=== PATIENT | female | born 2005 | race Hispanic/Latino ===

== ENCOUNTER 2023-11-30 11:53 | Inpatient (IN) | payer OTHER ==
[2023-11-30 12:11] VITALS: BMI 26.9
[2023-11-30 12:38] LABS: Fetal Membranes Rupture RUPTURE DETECTED (No Rupture)
[2023-11-30] MEDS ORDERED: hydrALAZINE 20 MG/ML VIAL SLOW IVP PRN ×2 (12:55→13:11)
[2023-11-30] MEDS ORDERED: Ondansetron PF 4 MG/2 ML Vial IVP PRN ×2 (13:11→16:40)
[2023-11-30] MEDS ORDERED: Promethazine HCl 25 MG/ML VIAL IM PRN ×2 (13:11→16:40)
[2023-11-30] MEDS ORDERED: Lidocaine 1% (PF) 30 ML VIAL SC PRN (13:11)
[2023-11-30] MEDS ORDERED: Methylergonovine 0.2 MG/ML VIAL IM PRN (13:12)
[2023-11-30] MEDS ORDERED: Carboprost 250 MCG/ML AMP IM PRN (13:12)
[2023-11-30] MEDS ORDERED: Acetaminophen 500 MG TAB PO PRN (13:12)
[2023-11-30] MEDS ORDERED: Ibuprofen 800 MG TAB PO PRN (13:12)
[2023-11-30] MEDS ORDERED: Tranexamic Acid 1,000 MG/10 ML VIAL IVP PRN (13:12)
[2023-11-30] MEDS ORDERED: fentaNYL 50 mcg/mL 1 mL Vial SLOW IVP PRN (13:12)
[2023-11-30] MEDS ORDERED: Diphenoxylate HCl/Atropine Tablet PO PRN (13:12)
[2023-11-30] MEDS ORDERED: Misoprostol 200 MCG TAB PR PRN (13:12)
[2023-11-30] MEDS ORDERED: Lactated Ringer's 1,000 ML IV SCH (13:15)
[2023-11-30] MEDS ORDERED: Oxytocin 30 units/NS 500 ML 500 ML IV SCH ×2 (13:15)
[2023-11-30] MEDS ORDERED: Penicillin G Potassium 5 MILL.UNITS in Sodium Chloride 0.9% 100 ML IVPB SCH (13:15)
[2023-11-30 13:48] LABS: Hematocrit 29.7 % (34.9-44.5); Hemoglobin 9.6 g/dL (12.0-15.5); Mean Corpuscular HGB CONC 32.3 g/dL (32.0-36.0); Mean Corpuscular Hemoglobin 20.3 pg (27.0-33.0); Mean Corpuscular Volume 62.9 fL (81.6-98.3); Mean Platelet Volume 10.4 fL (7.4-10.4); Platelet Count 254 10x3/uL (150-450); RBC Distribution Width 15.8 % (11.5-14.5); Red Blood Cell (RBC) Count 4.72 10x6/uL (3.90-5.03); White Blood Cell (WBC) Count 11.1 10x3/uL (3.5-10.5)
[2023-11-30 14:14] LABS: Syphilis Antibody Nonreactive (Nonreactive); Syphilis Antibody Index 0.06 S/CO (<1.00 Non-Reactive)
[2023-11-30 14:16] LABS: HBsAg Index 0.18 S/CO (0-0.99); Hep B Surf Ag - L&D Non-Reactive S/CO (NonReactive)
[2023-11-30] MEDS: fentaNYL/Ropivacaine Epidural 100 ML ONE (16:31)
[2023-11-30] MEDS ORDERED: Naloxone HCl 0.4 mg/ml Vial IVP PRN ×2 (16:40)
[2023-11-30] MEDS ORDERED: ePHEDrine Sulfate 50 MG/10 ML VIAL SLOW IVP PRN (16:40)
[2023-11-30] MEDS ORDERED: Moisturizing Cream (Eucerin) 113 GM JAR TOP PRN (16:40)
[2023-11-30] MEDS ORDERED: diphenhydrAMINE 50 MG/ML VIAL IVP PRN (16:40)
[2023-11-30] MEDS ORDERED: Lactated Ringer's 500 ML IV PRN (16:40)
[2023-11-30] MEDS ORDERED: fentaNYL 2 mcg/Ropivacaine 0.2% Epidural 100 ML CADD EPIDURAL SCH (16:45)
[2023-11-30] MEDS ORDERED: Communication Order-Pharmacy FS SCH (16:45)
[2023-11-30] MEDS ORDERED: Penicillin G 2.5 MILL.units 2.5 MILL.UNITS in Premix 1 BAG IVPB SCH (18:00)
[2023-12-01 00:23] LABS: Analyzer IN Cardio CS NICU; RapidComm Collect By RN; pH (Cord, venous) 7.297 (7.250-7.350)
[2023-12-01 00:27] LABS: Analyzer IN Cardio CS NICU; RapidComm Collect By RN
[2023-12-01] MEDS ORDERED: Bisacodyl 10 MG SUPP PR PRN (03:44)
[2023-12-01] MEDS ORDERED: Benzocaine-Menthol 82.5 ML CAN TOP PRN (03:44)
[2023-12-01] MEDS ORDERED: Milk Of Magnesia 30 ML UDCUP PO PRN (03:44)
[2023-12-01] MEDS ORDERED: hydrALAZINE 20 MG/ML VIAL SLOW IVP PRN (03:44)
[2023-12-01] MEDS: Ibuprofen 800 MG TAB PO SCH (05:10)
[2023-12-01] MEDS: Ferrous Sulfate 325 MG TAB PO SCH (07:53)
[2023-12-01] MEDS: Docusate 100 MG CAP PO SCH (07:53)
[2023-12-01] MEDS: Prenatal Vitamin 1 TAB PO SCH (07:53)
[2023-12-01] MEDS: Acetaminophen 325 MG TAB PO PRN (07:53)
[2023-12-02 07:18] LABS: #Basophils 0.07 10x3/uL (0.0-0.2); #Eosinphils 0.08 10x3/uL (0.0-0.5); #Neutrophils 9.03 10x3/uL (1.5-8.4); %Basophils 0.6 % (0.0-2.0); %Eosinophils 0.6 % (0.0-6.0); %Monocytes 4.9 % (0.0-10.0); %Neutrophils 73.3 % (40.0-75.0); Hematocrit 25.5 % (34.9-44.5); Hemoglobin 8.2 g/dL (12.0-15.5); Mean Corpuscular HGB CONC 32.2 g/dL (32.0-36.0); Mean Corpuscular Hemoglobin 20.5 pg (27.0-33.0); Mean Corpuscular Volume 63.8 fL (81.6-98.3); Mean Platelet Volume 10.1 fL (7.4-10.4); Platelet Count 243 10x3/uL (150-450); RBC Distribution Width 15.2 % (11.5-14.5); White Blood Cell (WBC) Count 12.3 10x3/uL (3.5-10.5)
[2023-12-02 07:41] VITALS: BP 106/60; TEMP 97.7
[2023-12-02] MEDS ORDERED: Bupivacaine 0.25% HCL 30 ML VIAL ONE (13:00)
== END 2023-12-02 13:20 | disposition home or self-care (01) | DRG 807 ==
LOC: CSHLD/OP 11:53 → CSHLD 13:14 → CSHPP 12-01 02:35
PROVIDERS: ADMIT Student in an Organized Health Care Education/Training Program; ATTEND Student in an Organized Health Care Education/Training Program
PROC: 10D07Z6 Extraction of Products of Conception, Vacuum, Via Natural or Artificial Opening (ICD-10-PCS; principal; 2023-11-30)
PROC: 0HQ9XZZ Repair Perineum Skin, External Approach (ICD-10-PCS; 2023-11-30)
DX: O42.02 Full-term premature rupture of membranes, onset of labor within 24 hours of rupture (principal); Z37.0 Single live birth; Z3A.39 39 weeks gestation of pregnancy; O99.02 Anemia complicating childbirth; D50.9 Iron deficiency anemia, unspecified; D56.1 Beta thalassemia; O70.0 First degree perineal laceration during delivery; O76 Abnormality in fetal heart rate and rhythm complicating labor and delivery
CPT/HCPCS: 36415; 51701; 51702; 82805; 84112; 85025; 85027; 86780; 86850; 86900; 86901; 87340; 99285; J0665